=== PATIENT | female | born 1940 | race Caucasian/White ===

== ENCOUNTER 2016-10-24 19:20 | Inpatient (IN) | payer OTHER, MEDICARE ==
[~2016-10-24] VITALS: Ht 160 cm; Wt 45.1 kg
[~2016-10-24 19:20] MED LIST: ALIG4CAP PO; ARTH650T6 PO; CARV12.5 PO; CLAR10CA3 PO; COLE1TAB2 PO; FIBE625T PO; FURO1TAB62 PO; GLUC500C5 PO; KRIL500C2; LISI10TA3 PO; POTA-163 PO; SIME1CAP17 PO; VENL75TA PO; ZOCO40TA PO
[2016-10-24 19:22] VITALS: BP 199/83; PULSE 87; RESP 20; O2SAT 94
[2016-10-24] MEDS ORDERED: SODIUM CHLORIDE 0.9% FLUSH 10 ML FLUSH IV FLUSH PRN (19:30)
--- NOTE | 2016-10-24 19:34 | PD ---
HPI Chief Complaint: Altered Mental Status Time Seen by Provider: 19:29 Travel History International Travel<30 days: No Contact w/Intl Traveler<30days: No Traveled to known affect area: No History of Present Illness HPI 76-year-old female with history of CHF, recent UTI, brought in by her daughter for generalized weakness, altered mental status, slurred speech, lack of coordination. About 2 weeks ago the patient displayed signs of unsteady gait. She was seen by her primary care physician at that time and was started on Macrobid for UTI. Her symptoms never improved, and this medication was switched to doxycycline last week. She also had an MRI performed 4 days ago, however they do not know the results. According to the daughter the patient is also having trouble picking up objects and putting food to her mouth. She has had decreased oral intake. She has also had intermittent slurred speech. Symptoms seemed to improve over the weekend, however returned today at around 9: 00 AM and have been persistent throughout the day today. No obvious focal deficits. Daughter also states that about a week ago the patient had an unwitnessed fall, striking the back of her head on the ground. She is not on any antiplatelets or anticoagulants. PFSH Past Medical History Cancer: Yes Cardiovascular Problems: Yes High Cholesterol: Yes Congestive Heart Failure: Yes Diminished Hearing: No Hypertension: Yes Myocardial Infarction: Yes ?: Not Past Surgical History Coronary Artery Bypass Graft: Yes Hysterectomy: Yes Tonsillectomy: Yes Social History Alcohol Use: No Tobacco Use: Yes Substance Use: No Allergies-Medications (Allergen,Severity, Reaction): Coded Allergies: Penicillins (Verified Allergy, Unknown, 10/25/16) clopidogrel (Verified Allergy, Unknown, 10/25/16) Reported Meds & Prescriptions Reported Meds & Active Scripts Active Reported Claritin (Loratadine) 10 Mg Cap 10 Mg PO DAILY Glucosamine (Glucosamine Sulfate) 500 Mg Cap 500 Mg PO DAILY Fibercon (Calcium Polycarbophil) 625 Mg Tab 625 Mg PO PRN Krill Oil 500 Mg Capsule Arthritis Pain Reliever ER 8 HR (Acetaminophen) 650 Mg Tab 650 Mg PO Q8HR PRN Align (Lactobacillus Rhamnosus (GG)) 4 Mg Cap 4 Mg PO DAILY Simethicone 125 Mg Cap 125 Mg PO QID PRN Effexor (Venlafaxine HCl) 75 Mg Tab 75 Mg PO DAILY Potassium Chloride ER (Potassium Chloride) 20 Meq Tab 20 Meq PO DAILY Zocor (Simvastatin) 40 Mg Tab 40 Mg PO DAILY Colestipol (Colestipol HCl) 1 Gm Tab 2 Gm PO BID Lisinopril 10 Mg Tab 10 Mg PO DAILY Coreg (Carvedilol) 12.5 Mg Tab 12.5 Mg PO BID Lasix (Furosemide) 20 Mg Tab 20 Mg PO DAILY Review of Systems Except as stated in HPI: all other systems reviewed are Neg Physical Exam Narrative GENERAL: Well-developed, thin, frail, elderly-appearing female, awake, alert, no apparent distress. SKIN: Focused skin assessment warm/dry. HEAD: Atraumatic. Normocephalic. EYES: Pupils equal and round. No scleral icterus. No injection or drainage. ENT: No nasal bleeding or discharge. Mucous membranes pink and moist. NECK: Trachea midline. No JVD. CARDIOVASCULAR: Regular rate and rhythm. No murmur appreciated. RESPIRATORY: No accessory muscle use. Clear to auscultation. Breath sounds equal bilaterally. GASTROINTESTINAL: Abdomen soft, non-tender, nondistended. MUSCULOSKELETAL: No obvious deformities. No clubbing. No cyanosis. No edema. NEUROLOGICAL: Awake and alert. No obvious cranial nerve deficits. Generalized weakness. No focal deficits. No pronator drift. Slight slurred speech. PSYCHIATRIC: Appropriate mood and affect; insight and judgment normal. Data Data Last Documented VS Vital Signs Date Time Temp Pulse Resp B/P (MAP) Pulse Ox O2 Delivery O2 Flow Rate FiO2 10/25/16 00:01 87 18 197/82 (120) 94 Room Air 10/24/16 19:45 98.4 Orders Orders Complete Blood Count With Diff (10/24/16 19:29) Comprehensive Metabolic Panel (10/24/16 19:29) Prothrombin Time / Inr (Pt) (10/24/16 19:29) Act Partial Throm Time (Ptt) (10/24/16 19:29) Urinalysis - C+S If Indicated (10/24/16 19:29) Iv Access Insert/Monitor (10/24/16 19:29) Ecg Monitoring (10/24/16 19:29) Oximetry (10/24/16 19:29) Sodium Chloride 0.9% Flush (Ns Flush) (10/24/16 19:30) Urinary Catheter Insert/Apply (10/24/16 19:29) Ct Brain W/O Iv Contrast(Rout) (10/24/16 ) Ct Cerv Spine W/O Contrast (10/24/16 ) Chest, Single Ap (10/24/16 ) Urine Culture (10/24/16 19:35) Ceftriaxone Inj (Rocephin Inj) (10/24/16 20:30) Electrocardiogram (10/24/16 19:23) Sodium Chlor 0.9% 1000 Ml Inj (Ns 1000 M (10/24/16 21:30) Ct Pulmonary Angiogram (10/24/16 ) Iohexol 350 Inj (Omnipaque 350 Inj) (10/24/16 23:48) Sodium Chlor 0.9% 1000 Ml Inj (Ns 1000 M (10/25/16 01:17) Admit Order (Ed Use Only) (10/25/16 01:18) Labs Laboratory Tests Test 10/24/16 19:35 White Blood Count 8.5 TH/MM3 Red Blood Count 4.25 MIL/MM3 Hemoglobin 12.0 GM/DL Hematocrit 37.0 % Mean Corpuscular Volume 86.9 FL Mean Corpuscular Hemoglobin 28.2 PG Mean Corpuscular Hemoglobin Concent 32.5 % Red Cell Distribution Width 13.6 % Platelet Count 129 TH/MM3 Mean Platelet Volume 7.6 FL Neutrophils (%) (Auto) 66.3 % Lymphocytes (%) (Auto) 23.6 % Monocytes (%) (Auto) 9.1 % Eosinophils (%) (Auto) 0.2 % Basophils (%) (Auto) 0.8 % Neutrophils # (Auto) 5.7 TH/MM3 Lymphocytes # (Auto) 2.0 TH/MM3 Monocytes # (Auto) 0.8 TH/MM3 Eosinophils # (Auto) 0.0 TH/MM3 Basophils # (Auto) 0.1 TH/MM3 CBC Comment DIFF FINAL Differential Comment Prothrombin Time 12.7 SEC Prothromb Time International Ratio 1.1 RATIO Activated Partial Thromboplast Time 21.9 SEC Urine Color YELLOW Urine Turbidity HAZY Urine pH 5.5 Urine Specific [place] 1.015 Urine Protein 30 mg/dL Urine Glucose (UA) NEG mg/dL Urine Ketones NEG mg/dL Urine Occult Blood SMALL Urine Nitrite NEG Urine Bilirubin NEG Urine Urobilinogen LESS THAN 2.0 MG/DL Urine Leukocyte Esterase LARGE Urine RBC 11 /hpf Urine WBC /hpf Urine WBC Clumps OCC Urine Squamous Epithelial Cells <1 /hpf Urine Bacteria RARE /hpf Urine Yeast (Budding) RARE Microscopic Urinalysis Comment CATH-CULTURE IND Blood Urea Nitrogen 35 MG/DL Creatinine 0.84 MG/DL Random Glucose 84 MG/DL Total Protein 6.1 GM/DL Albumin 3.2 GM/DL Calcium Level 14.9 MG/DL Alkaline Phosphatase 101 U/L Aspartate Amino Transf (AST/SGOT) 67 U/L Alanine Aminotransferase (ALT/SGPT) 23 U/L Total Bilirubin 0.6 MG/DL Sodium Level 127 MEQ/L Potassium Level 5.5 MEQ/L Chloride Level 91 MEQ/L Carbon Dioxide Level 28.1 MEQ/L Anion Gap 8 MEQ/L Estimat Glomerular Filtration Rate 66 ML/MIN Protein Corrected Calcium MG/DL Phosphorus Level 3.6 MG/DL [facility] Medical Decision Making Medical Screen Exam Complete: Yes Emergency Medical Condition: Yes Interpretation(s) EKG: Sinus, rate 87, normal axis, normal intervals, low QRS voltages in extremity leads, T waves in precordial leads, no acute ischemic abnormalities. Differential Diagnosis CVA, UTI, metabolic abnormality, sepsis, Narrative Course The patient does not meet stroke alert criteria as there are no focal deficits or aphasia. She does have slight slurring of speech. Her symptoms have been going on intermittently for about 2 weeks, and return today at around 9 AM. She is outside of the window for TPA. Initial vital signs show heart rate 87, blood pressure 199/93, pulse ox 94% on room air, Court temp of 98.4F. CBC is remarkable for platelets 129, otherwise unremarkable. CMP UA is suggestive of UTI. The patient was started on IV Rocephin. Chest x-ray: CONCLUSION: Soft tissue mass in the right upper lobe of concern for primary bronchogenic carcinoma. Further evaluation with chest CT with contrast is recommended. CT head: CONCLUSION: Negative noncontrast CT CT cervical spine: CONCLUSION: Negative trauma CT. 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 She was scheduled for a PET scan to look for possible metastases, however this was not yet performed. CT pulmonary angiogram: CONCLUSION: 1. No CT evidence for pulmonary artery embolism to the subsegmental level as questioned. 2. Multiple bilateral lung masses with a dominant 2.9 x 3.3 cm mass in the right upper lobe. Associated mediastinal adenopathy and likely left adrenal mass that is partially imaged. Overall findings are most concerning for metastatic disease with likely lung primary. 3. Small left pleural effusion. 4. Splenomegaly with questionable hypodense mass vs flow artifact posteriorly that is incompletely evaluated due to early arterial phase imaging. The patient and the patient's daughter were made aware of all findings. She will be admitted for further treatment and evaluation of hypercalcemia, generalized weakness, UTI, metastatic disease. Case discussed with hospitalist Dr. Kerr who will admit the patient to his service. At 6:40 AM I spoke with the patient's nephew Dr. Mcnally who can be reached at Diagnosis Primary Impression: Hypercalcemia Additional Impressions: Generalized weakness UTI (urinary tract infection) Qualified Codes: N39.0 - Urinary tract infection, site not specified; R31.9 - Hematuria, unspecified Metastatic disease Admitting Information Admitting Physician Requests: Chucho Kevin MD Oct 24, 2016 19:34
[2016-10-24 19:45] VITALS: TEMP 98.4
[2016-10-24 20:10] LABS: AUTOMATED NEUTROPHIL # 5.7 TH/MM3 (1.8-7.7); BASOPHIL # 0.1 TH/MM3 (0-0.2); BASOPHIL % 0.8 % (0.0-2.0); EOSINOPHIL % 0.2 % (0.0-4.0); HEMO FLAGS DIFF FINAL; LYMPH % 23.6 % (9.0-44.0); MEAN CELL VOLUME 86.9 FL (80.0-100.0); MEAN CORPUSCULAR HEMOGLOBIN 28.2 PG (27.0-34.0); MEAN CORPUSCULAR HGB CONC 32.5 % (32.0-36.0); MONO % 9.1 % (0.0-8.0); NEUT % 66.3 % (16.0-70.0); PLATELET COUNT 129 TH/MM3 (150-450); RED BLOOD COUNT 4.25 MIL/MM3 (4.00-5.30); RED CELL DISTRIBUTION WIDTH 13.6 % (11.6-17.2); WHITE BLOOD COUNT 8.5 TH/MM3 (4.0-11.0)
[2016-10-24 20:14] LABS: BACTERIA, URINE RARE /hpf; BLOOD, URINE SMALL (NEG); GLUCOSE,URINE NEG (NEG); KETONE, URINE NEG (NEG); NITRITE,URINE NEG (NEG); PH, URINE 5.5 (5.0-8.5); SQUAMOUS EPITHELIAL CELL URINE <1 /hpf (0-5); URINE COLOR YELLOW (YELLW/STRAW)
--- NOTE | 2016-10-24 20:14 | RADRPT ---
EXAM DATE/TIME: 10/24/2016 20:11 [facility] COMPARISON: No previous studies available for comparison. INDICATIONS : Shortness of breath. MEDICAL HISTORY : Myocardial infarction. Congestive heart failure. Hypercholesterolemia. Hypertension. SURGICAL HISTORY : None. ENCOUNTER: Initial ACUITY: 1 day PAIN SCORE: Non-responsive. LOCATION: Bilateral chest FINDINGS: A single AP supine portable view of the chest was obtained and demonstrates a 3.6 x 3.6 cm mass in th e right upper lobe. The heart size is within normal limits. There are no confluent infiltrates or eff usions. Atherosclerotic changes are present in the aorta. The bony thorax is intact. CONCLUSION: Soft tissue mass in the right upper lobe of concern for primary bronchogenic carcinom a. Further evaluation with chest CT with contrast is recommended. Perry Albrecht MD on October 24, 2016 at 20:11 Board Certified Radiologist. This report was verified electronically.
[2016-10-24 20:15] LABS: COMMENT (UR) CATH-CULTURE IND; CULTURE IF INDICATED CATH CULTURE IND
[2016-10-24] MEDS ORDERED: cefTRIAXone INJ 1,000 MG in SODIUM CHLORIDE 0.9% INJ 100 ML IV ONE (20:30)
[2016-10-24 20:35] LABS: APTT (PATIENT) 21.9 SEC (24.3-30.1); INTERNATIONAL NORMALIZED RATIO 1.1 RATIO; PROTHROMBIN TIME - PATIENT 12.7 SEC (9.8-11.6)
--- NOTE | 2016-10-24 20:38 | RADRPT ---
EXAM DATE/TIME: 10/24/2016 20:05 [facility] COMPARISON: CT BRAIN W/O CONTRAST, October 14, 2016, 14:09. INDICATIONS : Altered mental status. Patient fell one week ago. RADIATION DOSE: 56.35 CTDIvol (mGy) MEDICAL HISTORY : Hypertension. Cardiovascular disease SURGICAL HISTORY : Hysterectomy. ENCOUNTER: Initial ACUITY: 1 week PAIN SCALE: Non-responsive LOCATION: cranial TECHNIQUE: Multiple contiguous axial images were obtained of the head. Using automated exposure control and adj ustment of the mA and/or kV according to patient size, radiation dose was kept as low as reasonably a chievable to obtain optimal diagnostic quality images. DICOM format image data is available electro nically for review and comparison. FINDINGS: CEREBRUM: The ventricles are normal for age. No evidence of midline shift, mass lesion, hemorrhage or acute in farction. No extra-axial fluid collections are seen. POSTERIOR FOSSA: The cerebellum and brainstem are intact. The 4th ventricle is midline. The cerebellopontine angle i s unremarkable. EXTRACRANIAL: The visualized portion of the orbits is intact. SKULL: The calvaria is intact. No evidence of skull fracture. CONCLUSION: Negative noncontrast CT Perry Albrecht MD on October 24, 2016 at 20:35 Board Certified Radiologist. This report was verified electronically.
--- NOTE | 2016-10-24 20:43 | RADRPT ---
EXAM DATE/TIME: 10/24/2016 20:07 [facility] COMPARISON: CT CERVICAL SPINE W/O CONTRAST, October 14, 2016, 14:09. INDICATIONS : Altered mental status. Patient is status post recent fall.. RADIATION DOSE: 31.43 CTDIvol (mGy) MEDICAL HISTORY : Hypertension. Cardiovascular disease SURGICAL HISTORY : Hysterectomy. ENCOUNTER: Initial ACUITY: 1 week PAIN SCALE: Non-responsive LOCATION: neck TECHNIQUE: Volumetric scanning of the cervical spine was performed. Multiplanar reconstructions i n the sagittal, coronal and oblique axial planes were performed. Using automated exposure control a nd adjustment of the mA and/or kV according to patient size, radiation dose was kept as low as reason ably achievable to obtain optimal diagnostic quality images. DICOM format image data is available e lectronically for review and comparison. FINDINGS: The sagittal reconstructions demonstrate stable alignment and normal prevertebral soft tissues. There is a mild grade 1 anterior spondylolisthesis of C4 on C5 without significant change. The dens is int act and there is a normal atlantoaxial relationship. Degenerative disc changes again noted at the L5- C5 6 and C6-7 levels with disc space narrowing and hypertrophic change. The axial images demonstrate that the vertebral bodies and posterior elements are intact. The soft ti ssues are within normal limits. There is no evidence of acute fracture or malalignment. The thyroid g land remains heterogeneous with calcifications. Bilateral carotid artery calcification is again noted . Degenerative changes are again noted. CONCLUSION: Negative trauma CT. Perry Albrecht MD on October 24, 2016 at 20:39 Board Certified Radiologist. This report was verified electronically.
[2016-10-24 21:19] LABS: BICARBONATE 28.1 MEQ/L (21.0-32.0); POTASSIUM 5.5 MEQ/L (3.5-5.1); TOTAL BILIRUBIN ADULT 0.6 MG/DL (0.2-1.0)
[2016-10-24] MEDS ORDERED: SODIUM CHLOR 0.9% 1000 ML INJ 1,000 ML IV ONE (21:30)
[2016-10-24 21:59] VITALS: BP 155/66; PULSE 73; RESP 18; O2SAT 94
[2016-10-24] MEDS ORDERED: IOHEXOL 350 MG/ML 10 ML VIAL (for RAD DIAG) IVCONTRAST ONE (23:48)
[2016-10-25] VITALS (10 sets, daily range): BP systolic 115–225; BP diastolic 58–95; PULSE 77–99; RESP 16–24; TEMP 97.1–99.3; O2SAT 90–95
--- NOTE | 2016-10-25 00:19 | RADRPT ---
EXAM DATE/TIME: 10/24/2016 23:37 [facility] COMPARISON: No previous studies available for comparison. INDICATIONS : Chest pain; rule out pulmonary embolus. IV CONTRAST: 52 cc Omnipaque 350 (iohexol) IV RADIATION DOSE: 4.74 CTDIvol (mGy) MEDICAL HISTORY : Cardiovascular disease. Hypertension. SURGICAL HISTORY : CABG Hysterectomy. ENCOUNTER: Initial ACUITY: 1 day PAIN SCALE: 3/10 LOCATION: chest TECHNIQUE: Volumetric scanning of the chest was performed using a pulmonary embolism protocol MIP images were re constructed. Using automated exposure control and adjustment of the mA and/or kV according to patien t size, radiation dose was kept as low as reasonably achievable to obtain optimal diagnostic quality images. DICOM format image data is available electronically for review and comparison. Follow-up recommendations for detected pulmonary nodules are based at a minimum on nodule size and pa tient risk factors according to Fleischner Society Guidelines. FINDINGS: PULMONARY ARTERIES: No filling defects are seen in the pulmonary arteries through the segmental level. LUNGS: Abnormal. There is a 2.9 x 3.3 cm mass in the right upper lobe abutting the major fissure. There is a lso a cavitary peripheral mass in the superior segment of the right lower lobe measuring 1.1 x 0.8 cm . There is a contralateral mass in the left upper lobe peripherally measuring 0.9 x 0.8 cm. Additiona l 4-5 mm nodules are noted in the peripheral superior segment of the left lower lobe. There is backgr ound mild diffuse centrilobular emphysema. Linear parenchymal opacities in the lingula consistent wit h scarring/atelectasis. There is a small left pleural effusion and volume loss in the left lower lobe . PLEURAE: There is no pleural thickening or pleural effusion. MEDIASTINUM: Multiple enlarged mediastinal nodes. Anterior node measuring 1.2 cm. Anterior tracheal node measuring 1.4 cm. AP window node measuring 1.0 cm. Heart appears grossly unremarkable without significant agata cardial effusion. MUSCULOSKELETAL: Within normal limits for patient age. MISCELLANEOUS: Visualized portions of the upper abdomen demonstrate an enlarged spleen with questionable hypodense m ass posteriorly. There is likely a partially imaged left adrenal mass measuring at least 2.6 x 1.8 cm . CONCLUSION: 1. No CT evidence for pulmonary artery embolism to the subsegmental level as questioned. 2. Multiple bilateral lung masses with a dominant 2.9 x 3.3 cm mass in the right upper lobe. Associat ed mediastinal adenopathy and likely left adrenal mass that is partially imaged. Overall findings are most concerning for metastatic disease with likely lung primary. 3. Small left pleural effusion. 4. Splenomegaly with questionable hypodense mass vs flow artifact posteriorly that is incompletely ev aluated due to early arterial phase imaging. Lester Guy MD on October 25, 2016 at 0:09 Board Certified Radiologist. This report was verified electronically.
[2016-10-25] MEDS ORDERED: SODIUM CHLOR 0.9% 1000 ML INJ 1,000 ML IV SCH ×2 (01:17→11:00)
[2016-10-25] MEDS ORDERED: NALOXONE HCL 0.4 MG/ML AMP IV PRN (01:30)
[2016-10-25] MEDS ORDERED: SODIUM CHLORIDE 0.9% FLUSH 10 ML FLUSH IV FLUSH PRN (01:30)
[2016-10-25] MEDS ORDERED: ONDANSETRON HCL 4 MG/2 ML VIAL IVP PRN (01:30)
[2016-10-25] MEDS ORDERED: ACETAMINOPHEN 325 MG TAB PO PRN (01:30)
[2016-10-25 08:54] LABS: BICARBONATE 26.3 MEQ/L (21.0-32.0); POTASSIUM 4.5 MEQ/L (3.5-5.1)
[2016-10-25] MEDS ORDERED: niCARdipine INJ 25 MG in SODIUM CHLOR 0.9% 250 ML INJ 250 ML IV PRN (09:00)
[2016-10-25] MEDS ORDERED: SODIUM CHLORIDE 0.9% FLUSH 10 ML FLUSH IV FLUSH SCH (09:00)
--- NOTE | 2016-10-25 09:09 | HHI.PR ---
Addendum to Inpatient Note Addendum Reason: Additional Documentation Additional Information S: Resident team heard overhead paged to respond to Elian. Elian called for hypertension with a blood pressure of 225/93. Pernicious report patient is has a history of metastatic lung cancer with hypercalcemia, hyponatremia, hyperkalemia, with decreased ambulation recently. Patient denies any chest pain , shortness of breath, stroke symptoms. She reports feeling lightheaded, dizzy, tired. O: Vitals: 197/85, pulse 110, pulse ox 94 HEENT, normocephalic, pupils equal round reactive to light, moist mucous membranes Cardiovascular: Irregularly irregular and tachycardic rate and rhythm Respiratory: Coarse breath sounds bilaterally Abdomen: Soft nontender nondistended Extremities: No lower shoulder edema, no calf tenderness A/P: Patient is a 76-year-old female with a history of metastatic lung cancer who presents with decreased ambulation and electrolyte abnormalities found to have hypertensive urgency. Spoke with primary Dr. Chavez, who who recommended either labetalol or hydralazine and transfer for a Cardene drip. RN will call family. -Stat EKG -Labetalol 10 mg IV 1 -Transferred to ICU for IV drip Patient seen and discussed with Dr. Heidi Conde,Perry Oleary MD R2 Oct 25, 2016 09:09
[2016-10-25 09:39] LABS: MAGNESIUM 1.7 MG/DL (1.5-2.5)
[2016-10-25] MEDS ORDERED: LABETALOL HCL 100 MG/20 ML VIAL IV PUSH ONE (10:00)
[2016-10-25] MEDS ORDERED: cloNIDine HCL 0.2 MG TAB PO ONE (10:00)
[2016-10-25 10:03] LABS: FERRITIN 356 NG/ML (8-252); FREE T4 1.49 NG/DL (0.76-1.46); LDH SERUM 566 U/L (84-246); TRANSFERRIN IRON PROFILE 170 MG/DL (200-360)
[2016-10-25] MEDS ORDERED: CALCITONIN SALMON INJ 400 UNITS/2 ML VIAL SQ SCH (10:15)
[2016-10-25] MEDS ORDERED: hydrALAZINE HCL 20 MG/ML VIAL IV PUSH PRN (10:45)
--- NOTE | 2016-10-25 11:33 | MB ---
cc: LEN CROOKS MD DATE OF CONSULTATION 10/25/2016 DATE OF 1940 HISTORY OF PRESENT ILLNESS Ms. Lozano is a 76 year-old lady with a history of high blood pressure, congestive heart failure, hyperlipidemia, osteoarthritis who presented to the [facility] emergency room on October 24, 2016 with generalized weakness and altered mental status. As the patient is altered, she is unable to give history. Called daughter, Gracie Norris, on the phone to discuss the events that lead up to hospitalization. Her daughter reports that about two to three weeks before she initially presented, she noticed that her mother was having difficulty with walking. She reports that she was unbalanced, uncoordinated, she was also quite forgetful. Prior to that, she reports that her mother walked with a cane due to her arthritis, but she was able to perform all of her activities of daily living. She was a woman who woke up early and was organized and took care of herself and over the past few weeks that has completely changed. She reports they have been to see her primary physician for further evaluation and found that her mother had a urinary tract infection for which she was treated with Macrobid. She had an MRI of her brain which we are uncertain of the results, however, a physician told her she possibly had Parkinson's disease. Reportedly during physician evaluation, she failed a mini mental status exam. She also had a fall on Monday prior to her hospitalization. PAST MEDICAL HISTORY 1. Hypertension 2. Congestive heart failure 3. Hyperlipidemia 4. Arthritis PAST SURGICAL HISTORY 1. Repair of right femur with titanium bushra in place. 2. Hysterectomy 3. Tonsillectomy 4. Melanoma removal from leg with negative groin lymph node within the past year. FAMILY HISTORY Her mother with a history of lung cancer due to smoking. Her father, questionable melanoma. SOCIAL HISTORY She lives in [place]. She has a good support system with her daughter. She is a lifelong heavy smoker of one pack a day for 50 years and she was actively smoking prior to hospital admission. Her daughter reports that she was trying to light a cigarette and was unable to due to her change in mental status. Denies alcohol and illegal drug use. ALLERGIES SHE IS ALLERGIC TO PENICILLIN AND PLAVIX. LABORATORY STUDIES From October 24 showed a sodium of 127, potassium 5.5, chloride 91, BUN 35, creatinine 0.8, calcium level of 14.9 with an albumin level of 3.2, the corrected calcium was 15.5, total bilirubin was 0.6, AST 67, ALT 23 and alkaline phosphatase was 101. Chemistry studies from October 25 showed a sodium 131, potassium 4.5, chloride 97, bicarb of 26.3, BUN 29, creatinine 0.7, and a calcium level of 13.2 which corrected is 13.8. Coag's show an INR of 1.1, PT of 12.7 and a APTT of 21.9. Hematology studies show a white blood cell count of 8.5, hemoglobin of 12, platelet count of 129 which appears to be her baseline with a normal differential. Urine studies show a large leukocyte esterase with occasional white blood cell clumps and rare bacteria. IMAGING STUDIES Include a CT angiography which showed a 2.9 x 3.3 cm mass in the right upper lobe that was abutting the major fissure. There was also a cavitary peripheral mass in the superior segment of the right lower lobe measuring 1.1 x 0.8 cm. There is a contralateral mass in the left upper lobe peripherally measuring 0.9 x 0.8 cm. Additional 4 to 5 mm nodules are noted in the peripheral superior segment of the left lower lobe. There is background mild diffuse central lobular emphysema, linear parenchymal opacities in the lingula consistent with scarring atelectasis. There is a smaller pleural effusion and volume loss in the left lower lobe. Multiple enlarged mediastinal lymph nodes are present with the anterior node measuring 1.2 cm, an anterior tracheal node measuring 1.4 cm, an AP window node measuring 1.0 cm. Parts of the upper abdomen were visualized with a partially imaged left adrenal mass measuring at least 2.[address] cervical spine was negative for trauma. Chest x-ray shows soft tissue mass in the right upper lobe as concern for primary bronchogenic carcinoma. Further evaluation with CT of the chest is recommended. Head CT was negative for any acute changes. REVIEW OF SYSTEMS Unable to obtain due to altered mental status. PHYSICAL EXAM GENERAL: This is a frail elderly lady altered, oriented to person and place. EYES: Pupils equal, round and reactive to light and accommodation. ENT: Oropharynx clear. NECK: supple no palpable LAD. CARDIOVASCULAR: Regular rate and rhythm. No murmurs. RESPIRATORY: No respiratory distress, clear to auscultation bilaterally. GI: Soft, nontender and nondistended with bowel sounds present. MUSCULOSKELETAL: Normal muscle tone. SKIN: No rashes or lesions. NEUROLOGIC: Patient is oriented to person and place. She is unable to recall why she presented to the emergency room. She does follow directions. LYMPH: No enlarged lymph nodes. PSYCH: inappropriate responses to questions. ASSESSMENT AND PLAN 1. Hypercalcemia with corrected calcium of 15.5 on presentation to ED. After volume expansion corrected calcium changed to 13.8. Severe hypercalcemia most likely due to malignancy with lung lesions that are suspicious for cancer -Continue with fluid replacement. -Will start subcutaneous calcitonin at 4 IU/kg BID x 2 days. This medicine is safe and relatively nontoxic other than nausea and a rare hypersensitivity reaction. -Will give one dose of zoledronic acid which is effective with lowering calcium group home. This takes days to become effective. This drug is more potent than pamidronate. Calculated creatinine clearance is 48 mL/minute. Per the Zometa package insert , no dose adjustment is necessary in treating patients for hypercalcemia of malignancy presenting with mild to moderate renal impairment. She has been rehydrated prior to the initiation of Zometa. there is a risk of osteonecrosis of the jaw with IV bisphosphonates however this is most often seen with repeated administration for treatment of bony metastatic disease and not a one time dose for treatment of acute hypercalcemia of malignancy. Benefits outweight risk. -Placed orders for work up of her hypercalcemia including PTH, PTHRP, vitamin D panel. Serum phosphorus is normal. 2. Lung lesion suspicious for metastatic non-small cell lung cancer. Discussed suspicions with daughter. Her daughter reports that she does not believe that her mother would have wanted an extensive work up and treatment of cancer. Her goal would be to have her mother's mental status become normal and then have a chelsie conversation about goals of care. Ideally, would have a biopsy, a CT of the abdomen and pelvis and then MRI of the brain. We will hold off on these studies until acute situation improves. 3. Anemia most likely anemia of chronic disease. We will check iron profile, ferritin, B12, folate and thyroid studies. We will also check a peripheral blood smear. 4. Thrombocytopenia. Baseline appears to be approximately 130's to 120's. We will check a peripheral blood smear and above studies for further analysis. 5. Hyponatremia and hyperkalemia on admission most likely secondary to severe dehydration. Oncology service will continue to follow, thank you for this consult. MD PHUC Villatoro/AP /10:34 AM /10:54 AM MTDPriyanka
--- NOTE | 2016-10-25 11:54 | HHI.HP ---
HPI Service [facility] Primary Care Physician Osman Chavez MD Admission Diagnosis hypercalcemia, generalized weakness, UTI, metastatic disease Diagnoses: (1) Hypertensive emergency (2) Acute metabolic encephalopathy (3) UTI (urinary tract infection) (4) Metastatic disease (5) Hypercalcemia (6) Generalized weakness Chief Complaint: Altered mental status change Travel History International Travel<30 Days: No Contact w/Intl Traveler <30 Da: No Traveled to Known Affected Are: No History of Present Illness Patient is unable to communicate or provide any history at this time during my exam secondary to lethargy, and history is obtained from ED report and chart review below: "76-year-old female with history of CHF, recent UTI, brought in by her daughter for generalized weakness, altered mental status, slurred speech, lack of coordination. About 2 weeks ago the patient displayed signs of unsteady gait. She was seen by her primary care physician at that time and was started on Macrobid for UTI. Her symptoms never improved, and this medication was switched to doxycycline last week. She also had an MRI performed 4 days ago, however they do not know the results. According to the daughter the patient is also having trouble picking up objects and putting food to her mouth. She has had decreased oral intake. She has also had intermittent slurred speech. Symptoms seemed to improve over the weekend, however returned today at around 9: 00 AM and have been persistent throughout the day today. No obvious focal deficits. Daughter also states that about a week ago the patient had an unwitnessed fall, striking the back of her head on the ground. She is not on any antiplatelets or anticoagulants" While patient was initially on the MedSurg li, Elian called for hypertension with a blood pressure of 225/93 for which she was transfer to ICU where patient was examined. Review of Systems ROS Limitations: Altered Mental Status Except as stated in HPI: all other systems reviewed are Neg Past Family Social History Past Medical History Cancer: Yes Cardiovascular Problems: Yes High Cholesterol: Yes Congestive Heart Failure: Yes Hypertension: Yes Past Surgical History Coronary Artery Bypass Graft: Yes Hysterectomy: Yes Tonsillectomy: Yes Allergies: Coded Allergies: Penicillins (Verified Allergy, Unknown, 10/25/16) clopidogrel (Verified Allergy, Unknown, 10/25/16) Family History Unable to obtain family history Social History Alcohol Use: No Tobacco Use: Yes Substance Use: No Physical Exam Vital Signs Vital Signs Date Time Temp Pulse Resp B/P (MAP) Pulse Ox O2 Delivery O2 Flow Rate FiO2 10/25/16 10:44 99 212/95 10/25/16 09:50 99 10/25/16 09:40 98.7 99 24 212/95 (134) 90 10/25/16 03:35 97.8 98 16 157/79 (105) 92 10/25/16 03:06 10/25/16 03:00 99.3 94 18 179/72 (107) 95 Nasal Cannula 10/25/16 00:01 87 18 197/82 (120) 94 Room Air 10/24/16 21:59 73 18 155/66 (95) 94 Room Air 10/24/16 19:45 98.4 10/24/16 19:22 87 20 199/83 (121) 94 Physical Exam GENERAL: This is a well-nourished, well-developed patient, in no apparent distress. SKIN: No rashes, ecchymoses or lesions. Cool and dry. HEAD: Atraumatic. Normocephalic. No temporal or scalp tenderness. EYES: Pupils equal round and reactive. Extraocular motions intact. No scleral icterus. No injection or drainage. ENT: Nose without bleeding, purulent drainage or septal hematoma. Throat without erythema, tonsillar hypertrophy or exudate. Uvula midline. Airway patent. NECK: Trachea midline. No JVD or lymphadenopathy. Supple, nontender, no meningeal signs. CARDIOVASCULAR: Regular rate and rhythm without murmurs, gallops, or rubs. RESPIRATORY: Clear to auscultation. Breath sounds equal bilaterally. No wheezes , rales, or rhonchi. GASTROINTESTINAL: Abdomen soft, non-tender, nondistended. No hepato-splenomegaly , or palpable masses. No guarding. MUSCULOSKELETAL: Extremities without clubbing, cyanosis, or edema. No joint tenderness, effusion, or edema noted. No calf tenderness. Negative Homans sign bilaterally. NEUROLOGICAL: Awake and alert. Cranial nerves II through XII intact. Motor and sensory grossly within normal limits. Five out of 5 muscle strength in all muscle groups. Normal speech. Laboratory Laboratory Tests Test 10/24/16 19:35 10/25/16 08:04 White Blood Count 8.5 Red Blood Count 4.25 Hemoglobin 12.0 Hematocrit 37.0 Mean Corpuscular Volume 86.9 Mean Corpuscular Hemoglobin 28.2 Mean Corpuscular Hemoglobin Concent 32.5 Red Cell Distribution Width 13.6 Platelet Count 129 Mean Platelet Volume 7.6 Neutrophils (%) (Auto) 66.3 Lymphocytes (%) (Auto) 23.6 Monocytes (%) (Auto) 9.1 Eosinophils (%) (Auto) 0.2 Basophils (%) (Auto) 0.8 Neutrophils # (Auto) 5.7 Lymphocytes # (Auto) 2.0 Monocytes # (Auto) 0.8 Eosinophils # (Auto) 0.0 Basophils # (Auto) 0.1 CBC Comment DIFF FINAL Differential Comment Prothrombin Time 12.7 Prothromb Time International Ratio 1.1 Activated Partial Thromboplast Time 21.9 Urine Color YELLOW Urine Turbidity HAZY Urine pH 5.5 Urine Specific Manning 1.015 Urine Protein 30 Urine Glucose (UA) NEG Urine Ketones NEG Urine Occult Blood SMALL Urine Nitrite NEG Urine Bilirubin NEG Urine Urobilinogen LESS THAN 2.0 Urine Leukocyte Esterase LARGE Urine RBC 11 Urine WBC Urine WBC Clumps OCC Urine Squamous Epithelial Cells <1 Urine Bacteria RARE Urine Yeast (Budding) RARE Microscopic Urinalysis Comment CATH-CULTURE IND Blood Urea Nitrogen 35 29 Creatinine 0.84 0.70 Random Glucose 84 94 Total Protein 6.1 5.6 Albumin 3.2 Calcium Level 14.9 13.2 Alkaline Phosphatase 101 Aspartate Amino Transf (AST/SGOT) 67 Alanine Aminotransferase (ALT/SGPT) 23 Total Bilirubin 0.6 Sodium Level 127 131 Potassium Level 5.5 4.5 Chloride Level 91 97 Carbon Dioxide Level 28.1 26.3 Anion Gap 8 8 Estimat Glomerular Filtration Rate 66 81 Protein Corrected Calcium Phosphorus Level 3.6 Haptoglobin 103 Magnesium Level 1.7 Iron Level 31 Total Iron Binding Capacity 238 Percent Iron Saturation 13.0 Ferritin 356 Lactate Dehydrogenase 566 Vitamin B12 Level 1662 Folate 18.5 Free Thyroxine 1.49 Thyroid Stimulating Hormone 3rd Gen 1.800 Date/Time Source Procedure Growth Status 10/24/16 19:35 Urine Catheterized Urine Urine Culture Pending Received Result Diagram: 10/24/16 19310/25/16 0804 Imaging Last Impressions Head CT 10/24/16 Signed Impressions: Service Date/Time: Monday, October 24, 2016 20:05 - CONCLUSION: Negative noncontrast CT Perry Albrecht MD Chest X-Ray 10/24/16 Signed Impressions: Service Date/Time: Monday, October 24, 2016 20:11 - CONCLUSION: Soft tissue mass in the right upper lobe of concern for primary bronchogenic carcinoma. Further evaluation with chest CT with contrast is recommended. Perry Albrecht MD Cervical Spine CT 10/24/16 Signed Impressions: Service Date/Time: Monday, October 24, 2016 20:07 - CONCLUSION: Negative trauma CT. Perry Albrecht MD CT Angiography 10/24/16 Signed Impressions: Service Date/Time: Monday, October 24, 2016 23:37 - CONCLUSION: 1. No CT evidence for pulmonary artery embolism to the subsegmental level as questioned. 2. Multiple bilateral lung masses with a dominant 2.9 x 3.3 cm mass in the right upper lobe. Associated mediastinal adenopathy and likely left adrenal mass that is partially imaged. Overall findings are most concerning for metastatic disease with likely lung primary. 3. Small left pleural effusion. 4. Splenomegaly with questionable hypodense mass vs flow artifact posteriorly that is incompletely evaluated due to early arterial phase imaging. Lester Guy MD Septic Shock Reassessment Heart: Regular rate and rhythm Lungs: Clear Skin: Warm Capillary Refill: >2 seconds Caprini VTE Risk Assessment Caprini VTE Risk Assessment: Mod/High Risk (score >= 2) Caprini Risk Assessment Model Point Value = 1 Point Value = 2 Point Value = 3 Point Value = 5 Age 41-60 Minor surgery BMI > 25 kg/m2 Swollen legs Varicose veins or History of unexplained or recurrent spontaneous Oral contraceptives or hormone replacement Sepsis (< 1 month) Serious lung disease, including pneumonia (< 1 month) Abnormal pulmonary function Acute myocardial infarction Congestive heart failure (< 1 month) History of inflammatory bowel disease Medical patient at bed rest Age 61-74 Arthroscopic surgery Major open surgery (> 45 min) Laparoscopic surgery (> 45 min) Malignancy Confined to bed (> 72 hours) Immobilizing plaster cast Central venous access Age >= 75 History of VTE Family history of VTE Factor V Leiden Prothrombin [id number] Lupus anticoagulant Anticardiolipin antibodies Elevated serum homocysteine Heparin-induced thrombocytopenia Other congenital or acquired thrombophilia Stroke (< 1 month) Elective arthroplasty Hip, pelvis, or leg fracture Acute spinal cord injury (< 1 month) Prophylaxis Regimen Total Risk Factor Score Risk Level Prophylaxis Regimen 0-1 Low Early ambulation 2 Moderate Order ONE of the following: *Sequential Compression Device (SCD) *Heparin 5000 units SQ BID 3-4 Higher Order ONE of the following medications: *Heparin 5000 units SQ TID *Enoxaparin/Lovenox 40 mg SQ daily (WT < 150 kg, CrCl > 30 mL/min) *Enoxaparin/Lovenox 30 mg SQ daily (WT < 150 kg, CrCl > 10-29 mL/min) *Enoxaparin/Lovenox 30 mg SQ BID (WT < 150 kg, CrCl > 30 mL/min) AND/OR *Sequential Compression Device (SCD) 5 or more Highest Order ONE of the following medications: *Heparin 5000 units SQ TID (Preferred with Epidurals) *Enoxaparin/Lovenox 40 mg SQ daily (WT < 150 kg, CrCl > 30 mL/min) *Enoxaparin/Lovenox 30 mg SQ daily (WT < 150 kg, CrCl > 10-29 mL/min) *Enoxaparin/Lovenox 30 mg SQ BID (WT < 150 kg, CrCl > 30 mL/min) AND *Sequential Compression Device (SCD) Assessment and Plan Problem List: (1) Acute metabolic encephalopathy ICD Code: G93.41 - Metabolic encephalopathy (2) Hypertensive emergency ICD Code: I16.1 - Hypertensive emergency (3) Metastatic disease ICD Code: C79.9 - Secondary malignant neoplasm of unspecified site Status: Acute (4) UTI (urinary tract infection) ICD Code: N39.0 - Urinary tract infection, site not specified Status: Acute (5) Generalized weakness ICD Code: R53.1 - Weakness Status: Acute (6) Hypercalcemia ICD Code: E83.52 - Hypercalcemia Status: Acute Assessment and Plan 76-year-old female with Metabolic encephalopathy CT head noted and review by me and negative UA positive Urinary tract infection Status post Rocephin IV 1 in ED Start Levaquin 500 mg IV daily pending urine and blood culture Hypertensive emergency Start Cardene drip ICU admission Hypercalcemia Likely secondary to lung malignancy Currently on calcitonin 180 units twice a day and continue aggressive IV fluid hydration Status post biphosphonate Appreciate input from oncology Metastasis disease CTA noted and review by me with finding of lung masses PTH related peptide, PTH, TSH, free T4, LDH, folate and B-12 as well as vitamin 25 OH pending Appreciate input from oncology Generalized weakness May be due to hypercalcemia secondary to malignancy Treatment as in above PT consult to treat and eval History of CHF, hyperlipidemia and other chronic medical conditions First evaluate patient for swallow eval and then resume medications DVT prophylaxis: Heparin Total critical care time 55 minutes Code Status Full code Physician Certification 2 Midnight Certification Type: Admission for Inpatient Services Order for Inpatient Services The services are ordered in accordance with Medicare regulations or non- Medicare payer requirements, as applicable. In the case of services not specified as inpatient-only, they are appropriately provided as inpatient services in accordance with the 2-midnight benchmark. Estimated LOS (days): 2 days is the estimated time the patient will need to remain in the hospital, assuming treatment plan goals are met and no additional complications. Post-Hospital Plan: Not yet determined Problem Qualifiers (1) UTI (urinary tract infection): Qualified Codes: N39.0 - Urinary tract infection, site not specified; R31.9 - Hematuria, unspecified Joshua Hernandez MD Oct 25, 2016 11:54
[2016-10-25] MEDS ORDERED: ZOLEDRONIC ACID IV ONE (12:00)
[2016-10-25] MEDS ORDERED: SODIUM CHLORIDE 0.9% IV ONE (12:00)
[2016-10-25] MEDS ORDERED: CALCITONIN SALMON SQ SCH (12:00)
--- NOTE | 2016-10-25 14:03 | EKG ---
Date Performed: 10/24/2016 Time Performed: 19:23:42 PTAGE: 76 years EKG: Sinus rhythm LOW QRS VOLTAGE IN EXTREMITY LEADS BORDERLINE ECG NO PREVIOUS TRACING DOCTOR: Mook Lawson Interpretating Date/Time 10/25/2016 14:01:59
--- NOTE | 2016-10-25 15:59 | PD.CONS ---
Consult Service Palliative Care Consult Requested By Dr. Hernandez . Primary Care Physician Osman Chavez MD . Reason for Consultation a. To assist with evaluation and management of symptoms including: Restlessness, anxiety, dysphagia b. To assist medical decision maker(s) with: better understanding of current medical conditions; weighing benefits/burdens of medical treatment options; making medical treatment decisions. . HPI History of Present Illness This 76-year-old female, with a past history of CHF, CAD, hypertension, and long -term cigarette smoking, begin losing weight several months ago. She gradually lost more weight and was feeling weaker, but was still independent and ambulatory until about 3 or 4 weeks ago. She had to use a cane, but then had increasing difficulty ambulating because of weakness and loss of balance, and she had some falls. She had a couple emergency department visits but no obvious injury. She now presented to this emergency department on 10/24/16 because of worsening weakness and altered mental status. She had been getting more confused in the few days leading up to this admission, and she was also having some signs of dysphagia. In the emergency department, findings included: * Weakness, confusion * Temp 98.4, pulse 87, respirations 18, blood pressure 197/82, oxygen saturation 94% on room air\\ * White count 8.5, hemoglobin 12.0 * Sodium 127, creatinine 0.84 * Calcium 14.9 * Chest x-ray revealed a right upper lobe mass * CT angiography of the chest did not reveal any pulmonary emboli, but multiple masses consistent with malignancy were noted, with the likely primary being 2.9 x 3.3 cm in the right upper lobe; multiple areas of bulky adenopathy was also noted. * Urinalysis consistent with UTI The patient was admitted, and treatment was begun to rehydrate and try to normalize the calcium level. The patient remained confused and profoundly weak , nonambulatory. After the family had discussed the possibilities, they were hesitant to put the patient through any further workup or aggressive treatment, and a Palliative Medicine consult was requested to assist with symptom management, and to enter into discussions with the patient and family regarding her current illnesses, the prognosis, and the benefits and burdens of the various treatment choices. . Function/Cognitive Trajectory The patient was ambulatory although weaker and using a cane up until about 3 weeks ago. Her weakness has worsened since then, to the point of being completely nonambulatory in the few days prior to this admission. The confusion has also developed in the few days prior to this admission. . Review of Systems ROS Limitations: Altered Mental Status Constitutional: COMPLAINS OF: Weight loss (more than 30 pounds) Endocrine: DENIES: Polyuria Eyes: DENIES: Eye inflammation Ears, nose, mouth, throat: DENIES: Epistaxis Respiratory: COMPLAINS OF: Cough (chronic), Shortness of breath (with exertion) Cardiovascular: DENIES: Chest pain, Syncope, Lower Extremity Edema Gastrointestinal: DENIES: Constipation, Diarrhea, Vomiting Genitourinary: DENIES: Hematuria Musculoskeletal: COMPLAINS OF: Back pain (occasional mid back) Integumentary: DENIES: Rash Hematologic/Lymphatics: DENIES: Lymphadenopathy Immunologic/Allergic: DENIES: Urticaria Neurologic: DENIES: Localized weakness, Seizures Psychiatric: COMPLAINS OF: Anxiety (restlessness), Confusion, Depression, DENIES: Agitation Past Family Social History Coded Allergies: Penicillins (Verified Allergy, Unknown, 10/25/16) clopidogrel (Verified Allergy, Unknown, 10/25/16) Past Medical History * widely metastatic lung cancer * Hypercalcemia and hyponatremia, likely related to the malignancy * Dysphagia, risk of aspiration * Melanoma excised from the leg in 2016, no known residual disease * UTI * CHF history * CAD history * Hypertension * Hyperlipidemia * Arthritis . Past Surgical History * CABG * Right femur bushra * Hysterectomy * Tonsillectomy * Melanoma left leg . Reported Medications Reported Meds & Active Scripts Active Reported Claritin (Loratadine) 10 Mg Cap 10 Mg PO DAILY Glucosamine (Glucosamine Sulfate) 500 Mg Cap 500 Mg PO DAILY Fibercon (Calcium Polycarbophil) 625 Mg Tab 625 Mg PO PRN Krill Oil 500 Mg Capsule Arthritis Pain Reliever ER 8 HR (Acetaminophen) 650 Mg Tab 650 Mg PO Q8HR PRN Align (Lactobacillus Rhamnosus (GG)) 4 Mg Cap 4 Mg PO DAILY Simethicone 125 Mg Cap 125 Mg PO QID PRN Effexor (Venlafaxine HCl) 75 Mg Tab 75 Mg PO DAILY Potassium Chloride ER (Potassium Chloride) 20 Meq Tab 20 Meq PO DAILY Zocor (Simvastatin) 40 Mg Tab 40 Mg PO DAILY Colestipol (Colestipol HCl) 1 Gm Tab 2 Gm PO BID Lisinopril 10 Mg Tab 10 Mg PO DAILY Coreg (Carvedilol) 12.5 Mg Tab 12.5 Mg PO BID Lasix (Furosemide) 20 Mg Tab 20 Mg PO DAILY . Current Medications Medications (Trade) Dose Ordered Sig/Otis Route Start Time Stop Time Status Last Admin (NS Flush) 2 ml UNSCH PRN IV FLUSH 10/25/16 01:30 (NS Flush) 2 ml BID IV FLUSH 10/25/16 09:00 (Tylenol) 650 mg Q4H PRN PO 10/25/16 01:30 (Zofran Inj) 4 mg Q6H PRN IVP 10/25/16 01:30 (Narcan Inj) 0.4 mg UNSCH PRN IV 10/25/16 01:30 Nicardipine HCl 25 mg/Sodium Chloride 260 ml @ 52 mls/hr TITRATE PRN IV 10/25/16 09:00 10/25/16 10:44 (Apresoline Inj) 20 mg Q4H PRN IV PUSH 10/25/16 10:45 Sodium Chloride 1,000 ml @ 100 mls/hr Q10H IV 10/25/16 11:00 10/25/16 10:51 Calcitonin Mantador 180 units/Syringe / Bag 0.9 ml @ 0 mls/hr BID SQ 10/25/16 12:00 10/25/16 12:21 Levofloxacin/ Dextrose 100 ml @ 100 mls/hr Q24H IV 10/25/16 21:00 (Lactinex) 1 tab Q12HR PO 10/25/16 21:00 (Heparin Inj) 5,000 units Q12HR SQ 10/25/16 21:00 Family History The patient's mother of lung cancer. There is an extensive history of vascular and coronary disease in the family. . Substance Use Tobacco: Lifelong smoker Alcohol: None Prescription med abuse: None Illicits: None . Psychosocial History The patient was born and raised in [place], and moved to [place] more than 20 years ago. She lived with her until he last year, and has lived with her daughter and [id number] since then. . Spiritual/Cultural Factors The patient has a Confucianist and Scientology background, but has been unaffiliated with any particular scientology or clergy in recent years. The family has requested ecommerce merchandising manager visit. . Living Will: Never completed Health Care Surrogate: Copy in medical record Durable Power of Orthopedic Specialist: Copy in medical record Health Care Surrogate(s): Vanna Abdullahia (primary) and [id number] Zaira (secondary) . Today's verbally stated goals: Although the patient is confused and quite weak, she seemed to have some understanding of her current situation and was accepting of the family's decision to engage hospice services. . Family/friends goals: Transition to comfort care, hospice services. They understand that they don't want to put her through needle biopsy and that she would certainly not tolerate chemotherapy because of her frailty. . Ethical and Legal Issues There are no ethical issues that would impact her care were decision-making at this time. The patient has been confused for several days, likely due to metabolic issues. She does not have capacity for decision-making at this time, and she has designated her daughter Gracie as healthcare surrogate. . Physical Exam Vital Signs Date Time Temp Pulse Resp B/P (MAP) Pulse Ox O2 Delivery O2 Flow Rate FiO2 10/25/16 15:11 99 146/64 10/25/16 14:00 77 10/25/16 12:00 97.1 91 20 164/69 (100) 94 10/25/16 10:44 99 212/95 10/25/16 09:50 99 10/25/16 09:40 98.7 99 24 212/95 (134) 90 10/25/16 08:49 225/93 (137) 94 10/25/16 03:35 97.8 98 16 157/79 (105) 92 10/25/16 03:06 10/25/16 03:00 99.3 94 18 179/72 (107) 95 Nasal Cannula 10/25/16 00:01 87 18 197/82 (120) 94 Room Air 10/24/16 21:59 73 18 155/66 (95) 94 Room Air 10/24/16 19:45 98.4 10/24/16 19:22 87 20 199/83 (121) 94 Exam CONSTITUTIONAL/GENERAL: This is a weak, confused, cachectic patient, somewhat confused and restless. TUBES/LINES/DRAINS: Peripheral IV SKIN: No jaundice, rashes, or lesions. Ecchymoses on upper extremities. No wounds seen anteriorly. Skin temperature appropriate. Not diaphoretic. HEAD: Atraumatic. Normocephalic. EYES: Pupils equal and round and reactive. Extraocular motions intact. No scleral icterus. No injection or drainage. Fundi not examined. ENT: Hearing grossly normal. Nose without bleeding or purulent drainage. Throat without visible erythema, exudates, masses, or lesions. NECK: Trachea midline. Supple, nontender. No palpable thyroid enlargement or nodularity. CARDIOVASCULAR: Regular rate and rhythm without murmurs, gallops, or rubs. No JVD. Peripheral pulses symmetric. RESPIRATORY/CHEST: Symmetric, unlabored respirations. Markedly diminished breath sounds, a few rhonchi. GASTROINTESTINAL: Abdomen soft, non-tender, nondistended. No hepato-splenomegaly , or palpable masses. No guarding. Bowel sounds present. GENITOURINARY: Without palpable bladder distension. MUSCULOSKELETAL: Extremities without clubbing, cyanosis, or edema. No joint tenderness or effusion noted. No calf tenderness. No mottling or clubbing. LYMPHATICS: No palpable cervical or supraclavicular adenopathy. NEUROLOGICAL: Awake and alert, but profoundly weak. Follows commands. Moves all extremities. PSYCHIATRIC: Some anxiety and restlessness . Diagnostic Tests Laboratory Laboratory Tests Test 10/24/16 19:35 10/25/16 08:04 10/25/16 13:54 White Blood Count 8.5 TH/MM3 (4.0-11.0) Red Blood Count 4.25 MIL/MM3 (4.00-5.30) Hemoglobin 12.0 GM/DL (11.6-15.3) Hematocrit 37.0 % (35.0-46.0) Mean Corpuscular Volume 86.9 FL (80.0-100.0) Mean Corpuscular Hemoglobin 28.2 PG (27.0-34.0) Mean Corpuscular Hemoglobin Concent 32.5 % (32.0-36.0) Red Cell Distribution Width 13.6 % (11.6-17.2) Platelet Count 129 TH/MM3 (150-450) Mean Platelet Volume 7.6 FL (7.0-11.0) Neutrophils (%) (Auto) 66.3 % (16.0-70.0) Lymphocytes (%) (Auto) 23.6 % (9.0-44.0) Monocytes (%) (Auto) 9.1 % (0.0-8.0) Eosinophils (%) (Auto) 0.2 % (0.0-4.0) Basophils (%) (Auto) 0.8 % (0.0-2.0) Neutrophils # (Auto) 5.7 TH/MM3 (1.8-7.7) Lymphocytes # (Auto) 2.0 TH/MM3 (1.0-4.8) Monocytes # (Auto) 0.8 TH/MM3 (0-0.9) Eosinophils # (Auto) 0.0 TH/MM3 (0-0.4) Basophils # (Auto) 0.1 TH/MM3 (0-0.2) CBC Comment DIFF FINAL Differential Comment Prothrombin Time 12.7 SEC (9.8-11.6) Prothromb Time International Ratio 1.1 RATIO Activated Partial Thromboplast Time 21.9 SEC (24.3-30.1) Urine Color YELLOW (YELLW/STRAW) Urine Turbidity HAZY (CLEAR) Urine pH 5.5 (5.0-8.5) Urine Specific Enochs 1.015 (1.002-1.035) Urine Protein 30 mg/dL (NEG-TRACE) Urine Glucose (UA) NEG mg/dL (NEG) Urine Ketones NEG mg/dL (NEG) Urine Occult Blood SMALL (NEG) Urine Nitrite NEG (NEG) Urine Bilirubin NEG (NEG) Urine Urobilinogen LESS THAN 2.0 MG/DL (LESS Urine Leukocyte Esterase LARGE (NEG) Urine RBC 11 /hpf (0-3) Urine WBC /hpf (0-5) Urine WBC Clumps OCC (NONE) Urine Squamous Epithelial Cells <1 /hpf (0-5) Urine Bacteria RARE /hpf (NONE) Urine Yeast (Budding) RARE (NONE) Microscopic Urinalysis Comment CATH-CULTURE IND Blood Urea Nitrogen 35 MG/DL (7-18) 29 MG/DL (7-18) Creatinine 0.84 MG/DL (0.50-1.00) 0.70 MG/DL (0.50-1.00) Random Glucose 84 MG/DL (74-106) 94 MG/DL (74-106) Total Protein 6.1 GM/DL (6.4-8.2) 5.6 GM/DL (6.4-8.2) Albumin 3.2 GM/DL (3.4-5.0) Calcium Level 14.9 MG/DL (8.5-10.1) 13.2 MG/DL (8.5-10.1) Alkaline Phosphatase 101 U/L (45-117) Aspartate Amino Transf (AST/SGOT) 67 U/L (15-37) Alanine Aminotransferase (ALT/SGPT) 23 U/L (10-53) Total Bilirubin 0.6 MG/DL (0.2-1.0) Sodium Level 127 MEQ/L (136-145) 131 MEQ/L (136-145) Potassium Level 5.5 MEQ/L (3.5-5.1) 4.5 MEQ/L (3.5-5.1) Chloride Level 91 MEQ/L (98-107) 97 MEQ/L (98-107) Carbon Dioxide Level 28.1 MEQ/L (21.0-32.0) 26.3 MEQ/L (21.0-32.0) Anion Gap 8 MEQ/L (5-15) 8 MEQ/L (5-15) Estimat Glomerular Filtration Rate 66 ML/MIN (>89) 81 ML/MIN (>89) Protein Corrected Calcium MG/DL (8.5-10.1) MG/DL (8.5-10.1) Phosphorus Level 3.6 MG/DL (2.5-4.9) Haptoglobin 103 MG/DL (30-200) Magnesium Level 1.7 MG/DL (1.5-2.5) Iron Level 31 MCG/DL (50-170) Total Iron Binding Capacity 238 MCG/DL (250-450) Percent Iron Saturation 13.0 % (20-50) Ferritin 356 NG/ML (8-252) Lactate Dehydrogenase 566 U/L (84-246) Vitamin B12 Level 1662 PG/ML (193-986) Folate 18.5 NG/ML (3.1-17.5) Free Thyroxine 1.49 NG/DL (0.76-1.46) Thyroid Stimulating Hormone 3rd Gen 1.800 uIU/ML (0.358-3.740) Blood Smear Pathologist Review Result Diagram: 10/24/16193410/25/16 0804 Microbiology Microbiology Date/Time Source Procedure Growth Status 10/24/16 19:35 Urine Catheterized Urine Urine Culture - Preliminary Yeast-Id To Follow Resulted Imaging Last Impressions Head CT 10/24/16 0000 Signed Impressions: Service Date/Time: Monday, October 24, 2016 20:05 - CONCLUSION: Negative noncontrast CT Perry Albrecht MD Chest X-Ray 10/24/16 Signed Impressions: Service Date/Time: Monday, October 24, 2016 20:11 - CONCLUSION: Soft tissue mass in the right upper lobe of concern for primary bronchogenic carcinoma. Further evaluation with chest CT with contrast is recommended. Perry Albrecht MD Cervical Spine CT 10/24/16 Signed Impressions: Service Date/Time: Monday, October 24, 2016 20:07 - CONCLUSION: Negative trauma CT. Perry Albrecht MD CT Angiography 10/24/16 Signed Impressions: Service Date/Time: Monday, October 24, 2016 23:37 - CONCLUSION: 1. No CT evidence for pulmonary artery embolism to the subsegmental level as questioned. 2. Multiple bilateral lung masses with a dominant 2.9 x 3.3 cm mass in the right upper lobe. Associated mediastinal adenopathy and likely left adrenal mass that is partially imaged. Overall findings are most concerning for metastatic disease with likely lung primary. 3. Small left pleural effusion. 4. Splenomegaly with questionable hypodense mass vs flow artifact posteriorly that is incompletely evaluated due to early arterial phase imaging. Lester Guy MD Patient/Family Conference Present at Family Conference: Daughter Gracie, [id number] Zaira, patient's brother Ruel, [id number] . Family Conference Time (mins): 44 Family Conference Location: Bedside, Consult Room Issues Discussed: * Palliative care role, purpose, approach * Hospice care role, purpose, approach * Additional medical, psychosocial, and spiritual history * Patients general health, functional status, and cognitive changes in the months leading up to the current hospitalization * Patient/family understanding of the current medical problems * Patient/family understanding of prognosis * Patients goals of care as best understood from advance directives and/or conversations and/or values * Current medical treatment options and benefits/burdens of those options * Likely scenarios comparing ongoing aggressive care with a transition to comfort measures only * Questions answered to the best of my ability * Palliative care contact information provided The patient's family has requested a transition to comfort care, hospice services. They do not want to put her through any additional workup or any chemotherapy or radiation. . Assessment and Plan Disease Oriented Problem List: (1) apparent lung cancer, widely metastatic (2) cachexia, dysphagia, profound weakness (3) hypercalcemia (4) hyponatremia (5) history of CHF (6) history of melanoma, leg (7) history of CAD (8) hypertension (9) hyperlipidemia (10) arthritis Symptom Scale: (1) dyspnea 0-10 Scale: 2 (2) anxiety, restlessness 0-10 Scale: 2 Pertinent Non-Medical Issues Psychosocial: , 2 children, lives with daughter Spiritual: Confucianist and Scientology background, open to ecommerce merchandising manager visits Legal: The patient has been confused for several days, likely due to metabolic issues and advanced malignancy. She does not have capacity for decision-making at this time, and she has designated her daughter Gracie as healthcare surrogate. Ethical issues impacting care: None . Important Contacts Vanna Norris // [facility] // - [phone] Sbgnaepp-lv-egl Zaira Norris [phone] Nephew in [place]: Dr. Cameron Mcnally [phone] . Prognosis The patient is terminal, likely with just weeks to live. . Code Status: No Code Plan * DO NOT RESUSCITATE * DECISION-MAKING: The patient has been confused for several days, likely due to metabolic issues and advanced malignancy. She does not have capacity for decision-making at this time, and she has designated her daughter Gracie as healthcare surrogate. * GOALS: The patient's family has requested a transition to comfort care, hospice services. They do not want to put her through any additional workup or any chemotherapy or radiation. * Hospice consult placed, admissions nurse notified. * SYMPTOMS: The patient's profound weakness, dysphagia, and altered mental status can be managed using appropriate hospice treatments and techniques. She is at high risk for aspiration, and if she develops additional dyspnea that can also be managed medically. * Palliative Care will continue to follow the patient during this hospitalization. . Time Spent Total Floor Time (mins): 78 Face to Face Time (mins): 16 >50% Counseling/Coord of Care: Yes (d/w RN) Thank you for the opportunity to participate in the care of Ms. Ayala. Attestation To help prompt me to consider important information that might be impacting today's encounter and assessment, information from prior notes written by myself or my colleagues may have been "brought forward" into today's note. My signature on this note, however, is an attestation that I personally performed the exam, history, and/or decision-making noted today, and, unless otherwise indicated, the interactions with patient, family, and staff as well as the review of records all occurred today. I also attest that the listed assessment and stated plan reflect my best clinical judgment today based on the combination of historical information, prior notes, and today's exam/ interactions. When time spent is documented, it refers only to time spent today by the signer, or if indicated, combined time spent today by collaborating physician/nurse practitioner. Safia Moya MD Oct 25, 2016 15:59
[2016-10-25] MEDS ORDERED: LEVA500T20 PO (16:44)
--- NOTE | 2016-10-25 16:47 | HHI.PR ---
Addendum to Inpatient Note Addendum Reason: Additional Documentation Additional Information Patient was made DNR per family request. Palliative care Medicine as well as Hospice were consulted and patient will be discharged to Hospice care center today 10/25/16 Discharge patient to Hospice care center Condition on discharge: Deteriorating Regular Diet as tolerated Ad Jada activity Rx written:see EMR Follow-up with primary care physician Joshua Hernandez MD Oct 25, 2016 16:47
--- NOTE | 2016-10-25 20:41 | MB ---
cc: JENNY GEIGER ERIC DATE OF CONSULTATION: 10/25/2016 REQUESTING PHYSICIAN: Dr. Joshua Hernandez REASON FOR CONSULTATION: Lung nodules. HISTORY OF PRESENT ILLNESS: Ms. Lozano is a pleasant confused 76-year-old female who presented to the hospital with a decrease in her mentation and feeling extremely weak. She was worked up in the hospital and she had a CT scan of the chest done which shows no pulmonary embolism, has multiple lung masses, has adrenal mass. She had a CT scan of the cervical spine done which is negative for any trauma. CT scan of the brain is negative, noncontrast CT. Her CBC shows WBC count 248.5, hemoglobin 12, hematocrit 37, MCH 28.2, MCHC is 32.5, platelet count 129. Sodium 131, potassium 4.5, chloride 97, CO2 26, BUN 29, creatinine 0.70, calcium 13.2. PAST MEDICAL HISTORY As per record is significant for: 1. History of hypertension. 2. Congestive heart failure. 3. Right femur surgery. 4. Removal of melanoma. MEDICATIONS She is currently takin. Levaquin IV. 2. Heparin 5000 q. 12 hours. 3. She had a dose of zoledronic acid 4 milligrams. 4. Calcitonin 180 units subcu q12. 5. Hydralazine 20 mg p.r.n. 6. Nicardipine 25 milligrams The patient was transferred to the Intensive Care Unit. ALLERGIES PENICILLIN PLAVIX SOCIAL HISTORY She has a long history of smoking, lives with daugher. REVIEW OF SYSTEMS: Cannot assess. PHYSICAL EXAMINATION: The patient is a frail elderly female, confused, in mild shortness of breath. VITAL SIGNS: Blood pressure 115/58, heart rate 99, respiratory rate 16, temperature 97.5. HEENT: Unremarkable. NECK: Supple. JVP not raised. CHEST: No rhonchi. CV: S1-S2 normal. ABDOMEN: Benign. EXTREMITIES: No edema. IMPRESSION 1. Multiple lung nodules suspicious for malignancy. 2. Hypercalcemia. 3. Altered mental status. 4. Supple and mental status. 5. Anemia. PLAN: Oncology is consulted. Her hypercalcemia is being corrected. Continue IV fluid, monitor renal function. She is very frail and daughter has decided not to have any workup and palliative care is consulted. Will monitor her electrolytes. Further treatment will depend on the course in the hospital. Thank you, Dr. Hernandez, for this consult. Jenny Geiger MD ADA/THANIA /7:04 PM /8:08 PM
[2016-10-25] MEDS ORDERED: LACTOBACILLUS ACIDOPHILUS TAB PO SCH (21:00)
[2016-10-25] MEDS ORDERED: LEVOFLOXACIN 500 MG PREMIX INJ 100 ML IV SCH (21:00)
[2016-10-25] MEDS ORDERED: HEPARIN SODIUM - SQ 10,000 UNITS/ML VIAL SQ SCH (21:00)
[2016-10-27 14:54] LABS: PTH RELATED PEPTIDE 0.5 pmol/L (<2.0)
== END 2016-10-25 19:08 | disposition hospice, inpatient (51) | DRG 640 ==
LOC: NEPE 19:20 → NEDA 10-25 01:20 → N06A 10-25 03:45 → N03A 10-25 09:24
PROVIDERS: ADMIT Hospitalist; ATTEND Hospitalist
DX: E83.52 Hypercalcemia (principal); G93.41 Metabolic encephalopathy; R64 Cachexia; D69.6 Thrombocytopenia, unspecified; E86.0 Dehydration; I50.9 Heart failure, unspecified; I11.0 Hypertensive heart disease with heart failure; R13.10 Dysphagia, unspecified; C34.90 Malignant neoplasm of unspecified part of unspecified bronchus or lung; N39.0 Urinary tract infection, site not specified; I16.1 Hypertensive emergency; Z68.1 Body mass index [BMI] 19.9 or less, adult; E87.1 Hypo-osmolality and hyponatremia; R31.9 Hematuria, unspecified; R53.1 Weakness; F17.210 Nicotine dependence, cigarettes, uncomplicated; E78.5 Hyperlipidemia, unspecified; I25.10 Atherosclerotic heart disease of native coronary artery without angina pectoris; M19.90 Unspecified osteoarthritis, unspecified site; Z66 Do not resuscitate; D63.8 Anemia in other chronic diseases classified elsewhere; E87.5 Hyperkalemia; F41.9 Anxiety disorder, unspecified; Z51.5 Encounter for palliative care; R47.81 Slurred speech; Z91.81 History of falling; Z95.1 Presence of aortocoronary bypass graft; I25.2 Old myocardial infarction; Z85.820 Personal history of malignant melanoma of skin
CPT/HCPCS: 51702; 70450; 71010; 71275; 72125; 80048; 80053; 81001; 82040; 82306; 82310; 82397; 82607; 82652; 82728; 82746; 82948; 83010; 83540; 83550; 83615; 83735; 83970; 84100; 84155; 84439; 84443; 85025; 85060; 85610; 85730; 87086; 87106; 93005; 96361; 96365; J0630; J0696; J3489; J7030; J7050; Q9967